=== PATIENT | female | born 1960 | race African-American/Black ===

== ENCOUNTER → 2020-10-05 | Outpatient (CLI) | payer BC ==
--- NOTE | 2020-10-05 13:27 | RAD ---
EXAM: Right breast diagnostic mammogram. HISTORY: 59-year-old female presents for evaluation of right breast calcifications. TECHNIQUE: Full-field digital and spot magnification views of the right breast are obtained. COMPARISON: 09/04/2020 BREAST PARENCHYMAL DENSITY: Level B - Scattered fibroglandular densities. FINDINGS: There is a cluster of microcalcifications of varying sizes and shapes within the central ri ght breast slightly lateral to the nipple line craniocaudal projection. No associated mass or archite ctural distortion is seen in this location. IMPRESSION: 1. Cluster of indeterminate microcalcifications within the central right breast. Surgical or biopsy i s recommended. 2. BI-RADS Category 4: Suspicious abnormality. Stereotactic biopsy is recommended. These findings were discussed with the patient and communicated Ericka, the nurse for the referring physician, at 1300 hours on 10/05/2020 If your mammogram demonstrates that you have dense breast tissue, which could hide abnormalities, and if you have other risk factors for breast cancer that have been identified, you might benefit from s upplemental screening tests that may be suggested by your ordering physician. Dense breast tissue, i n and of itself, is a relatively common condition. This information is not provided to cause undue c oncern, but rather to raise your awareness and to promote discussion with your physician regarding th e presence of other risk factors, in addition to dense breast tissue. A report of your mammography re sults will be sent to you and your physician. You should contact your physician if you have any ques tions or concerns regarding this report. Mammography is a sensitive method for finding small breast cancers, but it does not detect them all a nd is not a substitute for careful clinical examination. A negative mammogram does not negate a clin ically suspicious finding and should not result in delay in biopsying a clinically suspicious abnorma lity. PQRS compliance statement - Patient information was entered into a reminder system with a target due date for the next mammogram. "Our facility is accredited by the [employer] Mammography [employer]." Electronically signed by: Tahira Bailey MD (10/05/2020 1:24 PM) [id number]
== END ==
LOC: MAMMO 12:42
PROVIDERS: ATTEND Internal Medicine
DX: R92.1 Mammographic calcification found on diagnostic imaging of breast (principal)
CPT/HCPCS: 77065

== ENCOUNTER → 2021-04-26 | Outpatient (CLI) | payer BC ==
--- NOTE | 2021-04-26 08:46 | RAD ---
EXAMINATION: MG DIGITAL UNILAT DIAGNOSTIC MAMMO WITH JAYLON History: Six-month follow-up post benign right breast biopsy Comparison: 10/28/2020, 10/05/2020, 09/04/2020. Technique: Right breast digital diagnostic mammogram views were obtained. CAD was utilized. 3-D jaylon synthesis images were acquired. Findings: Breast Tissue Density B : There are scattered areas of fibroglandular density. There is a biopsy clip in the central right breast at site of biopsy-proven benign calcifications.. No suspicious mass, suspicious calcifications or architectural distortion. Multiple circumscribed libardo ign-appearing nodules are unchanged from 09/04/2020. IMPRESSION: No mammographic evidence of malignancy. Recommend bilateral screening mammogram in 4 months, due in A pril 2021. BI-RADS category 2: Benign findings. The images were reviewed with computer aided detection. Patient information is entered into the reminder system with a target due date for the next screening mammogram. Mammography is the most sensitive method for finding small breast cancers, but it does not detect the m all and is not a substitute for careful clinical examination. A negative mammogram does not negate a clinically suspicious finding and should not result in delay in biopsying a clinically suspicious a bnormality. "Our facility is accredited by the [employer] Mammography [employer]." Electronically signed by: Tammy Melendez MD (04/26/2021 8:44 AM) [facility]
== END ==
LOC: MAMMO 07:43
PROVIDERS: ATTEND Internal Medicine
DX: R92.8 Other abnormal and inconclusive findings on diagnostic imaging of breast (principal); R92.1 Mammographic calcification found on diagnostic imaging of breast
CPT/HCPCS: 77065; G0279; 77061